=== PATIENT | female | born 2000 | race Caucasian/White ===

== ENCOUNTER → 2019-03-29 | Outpatient (CLI) | payer OTHER ==
--- NOTE | 2019-03-30 05:16 | MR ---
EXAMINATION TYPE: MR wrist LT wo con DATE OF EXAM: 03/29/2019 COMPARISON: None HISTORY: Lt wrist pain/injury, fell off step Standard multiplanar, multisequence MRI departmental protocol Multiplanar, multisequence images of the left wrist were acquired. FINDINGS: There is abnormal decreased signal on the T1 images in the proximal scaphoid bone related t o edema in the proximal scaphoid. There is a fracture through the waist of the scaphoid bone with no displacement. The other carpal bones appear intact. Proximal metacarpals are intact. Distal radius an d ulna appear intact. The triangular cartilage appears intact. There is increased joint fluid of the carpus seen mostly on the posterior aspect of the wrist. The intercarpal joint spaces are fairly norm al. The flexor and extensor tendons of the wrist appear intact. IMPRESSION: There is fracture of the waist of the scaphoid bone with edema in the proximal scaphoid consistent wi th avascular necrosis. Wrist joint effusion.
== END | disposition home or self-care (01) ==
LOC: RADMRIMAIN 21:04
PROVIDERS: ATTEND Orthopaedic Surgery Hand Surgery
DX: S62.025D Nondisplaced fracture of middle third of navicular [scaphoid] bone of left wrist, subsequent encounter for fracture with routine healing (principal)

== ENCOUNTER 2019-04-09 11:43 | Day surgery (SDC) | payer OTHER ==
[2019-04-07 11:38] VITALS: BMI 32.3
[~2019-04-09 11:43] MED LIST: DEXAMETHASONE SOD PHOSPHATE 10 MG/ML 1 ML VIAL IV ONE; HYDROmorphone 0.5 MG/0.5 ML SYRINGE IVP PRN; LACTATED RINGERS 1,000 ML IV SCH; LIDOCAINE 1% 20 ML VIAL (10MG/ML) FOR IV START INTRADERMA PRN; MIDAZOLAM 2 MG/2 ML VIAL IV PRN; ONDANSETRON 4 MG/2 ML VIAL IVP ONE; SCOPOLAMINE 1.5MG/72HR PATCH TRANSDERM ONE
[2019-04-09] MEDS ORDERED: LIDOCAINE 1% 20 ML VIAL (10MG/ML) FOR IV START SQ ONE (12:29)
[2019-04-09] MEDS ORDERED: fentaNYL (PF) 50 MCG/ML 2 ML AMP IV ONE (13:27)
[2019-04-09] MEDS ORDERED: MIDAZOLAM 2 MG/2 ML VIAL IV ONE (13:27)
--- NOTE | 2019-04-09 13:40 | P.ANPRN ---
Procedure Note - Anesthesia - Nerve Block Performed Left Axillary Single Time Out Performed: Yes (1326) Date of Procedure: 04/09/19 Procedure Start Time: 13:26 Procedure Stop Time: 13:32 Location of Patient Procedure: PreOp Indication: Acute Post-Operative Pain, Dx/Pain Location, Requested by Surgeon Sedation Type: Sedate with meaningful contact maintained Preparation: Sterile Prep Position: Supine Needle Types: Pajunk Needle Gauge: 21 Ultrasound used to visualize needle placement: Yes Ultrasound used to observe medication spread: Yes Injectate: 0.5% Ropivacaine (see comment for volume) (20ml) Blood Aspirated: No Pain Paresthesia on Injection Noted: No Resistance on Injection: Normal Image Stored and Saved: Yes Events: Uneventful and Well Tolerated
[2019-04-09] MEDS ORDERED: fentaNYL (PF) 50 MCG/ML 2 ML AMP ONE (13:45)
[2019-04-09] MEDS ORDERED: LIDOCAINE 1% INJ 10MG/ML (20 ML MDV) ONE (13:45)
[2019-04-09] MEDS ORDERED: PHENYLEPHRINE-0.9% NACL SYG 1 MG/10 ML SYRINGE ONE (13:45)
[2019-04-09] MEDS ORDERED: ePHEDrine SULFATE/0.9% NACL/PF 50 MG/5 ML SYRINGE IV ONE (13:45)
[2019-04-09] MEDS ORDERED: MIDAZOLAM 2 MG/2 ML VIAL ONE (13:45)
[2019-04-09] MEDS ORDERED: ROPIVACAINE 5 MG/ML 30 ML VIAL ONE (13:45)
[2019-04-09] MEDS ORDERED: PROPOFOL 10 MG/ML 20 ML VIAL IV ONE (13:45)
[2019-04-09] MEDS ORDERED: LIDOCAINE 1%-EPI 1:100,000 20 ML VIAL SQ ONE (14:19)
[2019-04-09] MEDS ORDERED: BUPIVACAINE (PF) 0.5% 30 ML VIAL SQ ONE (14:19)
[2019-04-09] MEDS ORDERED: LACTATED RINGERS 1,000 ML IV ONE (14:34)
[2019-04-09 16:33] VITALS: TEMP 98.2
[2019-04-09 16:37] VITALS: RESP 16
[2019-04-09 17:32] VITALS: BP 137/77; PULSE 120
--- NOTE | 2019-04-10 15:15 | FL ---
EXAMINATION TYPE: FL guidance operating room, XR wrist complete LT DATE OF EXAM: 04/09/2019 CLINICAL HISTORY: Fluoroscopic documentation of fixation of a displaced fracture of the left navicula r bone/scaphoid. TECHNIQUE: Fluoroscopy. COMPARISON: None. FINDINGS: Fluoroscopic guidance was provided during pain relief procedure performed by Dr. Sandra ortega A total of 1.48 minutes of fluoroscopic time was utilized during the procedure and 7 spot images are acquired. Images acquired shows surgical fixation of a scaphoid fracture. IMPRESSION: As Above.
--- NOTE | 2019-04-10 16:14 | P.OP ---
Date of Procedure: 04/09/19 Preoperative Diagnosis: Nonunion of left scaphoid waist fracture Postoperative Diagnosis: Nonunion of left scaphoid waist fracture Procedure(s) Performed: Open reduction and internal fixation of left scaphoid nonunion Implants: Synthes 2.4 mm headless compression screw - 16 mm Anesthesia: MOEAkelsey, local Surgeon: Maxwell Otero Slitter And Cutter Operator #1: Tena Moreno Estimated Blood Loss (ml): 4 Condition: stable Disposition: PACU Indications for Procedure: The patient is a pleasant 18-year-old female, who sustained a fracture of her left scaphoid. She did not seek treatment after the initial injury and had not been immobilized. X-rays were eventually obtained, which demonstrated the fracture. Treatment options/alternatives were discussed in the office. Operative treatment was recommended. Risks and benefits of both non-operative and surgical treatment were reviewed in the office; the patient expressed understanding and elected to proceed with surgery. The operative site was confirmed and marked. Consent forms were signed. Description of Procedure: The patient was administered regional nerve block by the Anesthesia team and was then brought to the operative suite. She was positioned supine with the ope rative limb on a hand table. Prophylactic antibiotics were administered. A tourniquet was applied and the left upper extremity was prepped and draped in standard, sterile fashion. A time-out was performed, confirming patient identifiers, the operative side, site and procedure to be performed: all team members expressed agreement. The limb was exsanguinated with an Esmarch and the tourniquet was inflated. A longitudinal dorsal incision was marked over the proximal pole of the scaphoid, just distal to Listers tubercle. The skin was sharply incised and full-thickness skin flaps were elevated. The EPL tendon was identified. The distal edge of the extensor retinaculum was incised to facilitate exposure. Small, partial-thickness cut was inadvertently made in the EPL tendon while releasing the retinaculum. This involved less than 25% of the tendon circumference. This was repaired with a 6-0 nylon suture. The dorsal wrist capsule was identified and capsulotomy was made, taking care to protect the intercarpal ligaments. The proximal pole of the scaphoid was visualized. Intraoperative fluoroscopy was used to evaluate the fracture from multiple views. The wrist was hyperflexed and the starting point was visually identified and confirmed with imaging. A guidewire was advanced into the scaphoid and across the fracture. Initial wire position was suboptimal. This was left in place and a 2nd wire was selected and advanced in a new trajectory, confirmed on imaging. Both wires were then advanced through the skin of the thenar eminence via a small stab incision and withdrawn below the scaphoid articular surface to permit wrist extension. The position of the wires was assessed on multiple fluoroscopy views and found to be satisfactory. The wrist was again flexed and the selected wire was driven back across the scaphoid and out the dorsal incision. The length was measured off the guidewire, which was then advanced out the volar skin to permit easier removal in the event of inadvertent wire breakage. The cannulated drill was inserted over the guidewire, checking insertion depth with fluoroscopy. The screw was then inserted over the wire. A 20 mm screw was initially selected but this proved to be too long, sitting proud above the proximal articular surface. This was removed easily and a 16 mm screw was selected and inserted over the guidewire. Placement below the chondral surface was visually confirmed. The guidewires were removed. Final images were obtained, confirming implant position and fracture alignment. The wrist was taken through full range of motion: There was no crepitus, grinding or instability. The wound was thoroughly irrigated with normal saline. The capsule and extensor retinaculum were repaired with interrupted 3-0 Vicryl sutures. The tourniquet was released after 90 minutes at 250 mmHg. Good hemostasis was obtained with held pressure. The subcutaneous tissues were reapproximated with interrupted Vicryl sutures and the incision closed with a running 4-0 Monocryl suture. Local anesthetic was injected for adjunctive postoperative analgesia. Steri-Strips and sterile dressings were applied, followed by short arm thumb spica splint. All sponge, needle and instrument counts were correct at the end of the case. The patient tolerated the procedure well and was taken to the recovery room in stable condition.
== END 2019-04-09 17:48 | disposition home or self-care (01) ==
LOC: OR 11:43
PROVIDERS: ATTEND Orthopaedic Surgery
DX: S62.022K Displaced fracture of middle third of navicular [scaphoid] bone of left wrist, subsequent encounter for fracture with nonunion (principal); Z79.3 Long term (current) use of hormonal contraceptives; Z90.89 Acquired absence of other organs; V00.831D Fall from motorized mobility scooter, subsequent encounter
CPT/HCPCS: 25440; 81025; 64417; 76942; 73110; C1713; J2250; J1100; J0690; J2405; J2001; J3010; J2795; J2370; J2704; 64415

== ENCOUNTER → 2019-04-21 | Outpatient (CLI) | payer OTHER | END | disposition home or self-care (01) | LOC: LABWHC1 16:03 | PROVIDERS: ATTEND Orthopaedic Surgery | DX: E55.9 Vitamin D deficiency, unspecified (principal); M25.532 Pain in left wrist; S62.022D Displaced fracture of middle third of navicular [scaphoid] bone of left wrist, subsequent encounter for fracture with routine healing | CPT/HCPCS: 36415; 82306 ==

== ENCOUNTER → 2019-07-09 | Outpatient (CLI) | payer OTHER ==
--- NOTE | 2019-07-09 12:22 | CT ---
EXAMINATION TYPE: CT wrist LT wo con DATE OF EXAM: 07/09/2019 COMPARISON: 04/08/2019 MRI wrist HISTORY: Left wrist pain CT DLP: 98.7 mGycm Automated exposure control for dose reduction was used. TECHNIQUE: Axial images 2 mm thick sections. Reconstructed images in the coronal and sagittal plane. FINDINGS: There is a screw present within the scaphoid. There appears to be nonunion of the scaphoid fracture. No resorption around the fracture fragment is evident. Lucency remains through the fracture line harman angel. Scapholunate space appears preserved. Remaining carpal bones appear normal. Distal radius and ulna ap pear normal. A BB is over the ulnar aspect of the wrist. IMPRESSION: 1. NO ACUTE OSSEOUS ABNORMALITY. 2. NONUNION OF A SCAPHOID FRACTURE.
== END | disposition home or self-care (01) ==
LOC: RADCTMAIN 09:27
PROVIDERS: ATTEND Orthopaedic Surgery
DX: S62.022K Displaced fracture of middle third of navicular [scaphoid] bone of left wrist, subsequent encounter for fracture with nonunion (principal); Z98.890 Other specified postprocedural states

== ENCOUNTER 2020-05-31 12:10 | Emergency (ER) | payer OTHER ==
[2020-05-31] MEDS ORDERED: MORPHINE SULFATE 2 MG/ML SYRINGE IVP PRN (12:59)
[2020-05-31] MEDS ORDERED: ONDANSETRON 4 MG/2 ML VIAL IVP STA (12:59)
[2020-05-31] MEDS ORDERED: SODIUM CHLORIDE 0.9% 500 ML 500 ML IV ONE (12:59)
[2020-05-31 13:50] LABS: Basophils % (A) 0 %; Eosinophils # (A) 0.1 k/uL (0-0.7); Eosinophils % (A) 1 %; HCT 43.2 % (34.0-46.0); HGB 14.7 gm/dL (11.4-16.0); Lymphocytes # (A) 1.5 k/uL (1.0-4.8); Lymphocytes % (A) 11 %; MCH 30.1 pg (25.0-35.0); MCV 88.5 fL (80.0-100.0); Mean Platelet Volume 8.4; Monocytes # (A) 0.5 k/uL (0-1.0); Monocytes % (A) 3 %; Neutrophils # (A) 11.9 k/uL (1.3-7.7); Neutrophils % (A) 84 %; Platelet Count 283 k/uL (150-450); RBC 4.88 m/uL (3.80-5.40); RDW 12.6 % (11.5-15.5)
[2020-05-31] MEDS ORDERED: ACETAMINOPHEN TAB 325 MG TAB PO STA (13:50)
[2020-05-31 14:00] LABS: Albumin 4.5 g/dL (3.5-5.0); Potassium 3.9 mmol/L (3.5-5.1); Total Bilirubin 0.6 mg/dL (0.2-1.3); Total Protein 7.2 g/dL (6.3-8.2)
--- NOTE | 2020-05-31 14:07 | US ---
EXAMINATION TYPE: US pelvis DATE OF EXAM: 05/31/2020 COMPARISON: NONE . CLINICAL HISTORY: LLQ Pain. LLQ pain today with nausea and vomiting today TECHNIQUE: Transabdominal (TA). Transabdominal sonographic images of the pelvis were acquired and b ladder is not fully prepped. Date of LMP: 05/31/20 EXAM MEASUREMENTS: Uterus: 8.3 x 4.5 x 3.0 cm Endometrial Stripe: 0.3 cm Right Ovary: 2.1 x 1.3 x 1.1 cm Left Ovary: 2.1 x 2.1 x 1.6 cm 1. Uterus: Anteverted 2. Endometrium: thickness is wnl for day 1 LMP 3. Right Ovary: small follicles 4. Left Ovary: small follicles Spectral, color and waveform Doppler imaging shows good arterial and venous flow within the ovaries . 5. Bilateral Adnexa: wnl 6. Posterior cul-de-sac: wnl 7. Bowel is noted at LLQ pain. Heterogeneous anteverted uterus. Endometrial stripe not suspiciously thickened. No free fluid. Both ovaries seen and normal in size. No suspicious adnexal masses. IMPRESSION: Unremarkable study.
[2020-05-31 15:42] LABS: Appearance,Urine Cloudy (Clear); Bacteria,Urine Rare /hpf; Bilirubin,Urine Negative (Negative); Blood,Urine Large (Negative); Calcium Oxalate Crystals,Urine Occasional /hpf; Color,Urine Yellow; Glucose,Urine (UA) Negative (Negative); Ketones,Urine Negative (Negative); Leukocyte Esterase,Urine Moderate (Negative); Mucus,Urine Many /hpf; Nitrite,Urine Negative (Negative); PH, Urine 5.5 (5.0-8.0); Protein,Urine 2+ (Negative); RBC,Urine >182 /hpf (0-5); Specific Gravity,Urine 1.029 (1.001-1.035); Squamous Epithelial Cell,Urine 4 /hpf (0-4); Urobilinogen,Urine <2.0 mg/dL (<2.0); WBC,Urine 89 /hpf (0-5)
[2020-05-31] MEDS ORDERED: KETOROLAC 15 MG/ML 1 ML VIAL IVP STA (15:54)
[2020-05-31 16:32] VITALS: BP 127/74; PULSE 81; RESP 18; TEMP 98.3
[2020-05-31] MEDS ORDERED: cefTRIAXone IN SWFI 1,000 MG/10 ML SYRINGE IVP STA (16:47)
--- NOTE | 2020-05-31 16:50 | CT ---
EXAMINATION TYPE: CT abdomen pelvis w con DATE OF EXAM: 05/31/2020 COMPARISON: None HISTORY: LLQ pain CT DLP: 1021.8 mGycm Automated exposure control for dose reduction was used. CONTRAST: Performed with IV Contrast, patient injected with 100 mL of Isovue 370. Images obtained from the diaphragm to the floor the pelvis with IV contrast. The lung bases are clear. There is no pleural effusion. Heart size is normal. There is no pericardial effusion. Liver spleen stomach pancreas gallbladder appear normal. Bile ducts are not dilated. There is no adrenal mass. There is left-sided hydronephrosis. There is 7 mm obstructing calculus at t he left ureteropelvic junction. There is mild left side perinephric edema. Right kidney shows normal contrast opacification without evidence of obstruction. There is no retroperitoneal adenopathy. Bladder distends smoothly. There is 4.6 cm cyst on the right ovary. Uterus is anteverted. There is no free fluid in the pelvis. Lumbar vertebra have normal spacing and alignment. Posterior elements are intact. Bony pelvis is inta ct. Appendix is normal. There is no mesenteric edema. There is no ascites or free air. There is no bowel obstruction. IMPRESSION: Obstructing calculus at the left ureteropelvic Junction with left-sided hydronephrosis. Normal appendix. Large cyst on the right ovary.
--- NOTE | 2020-05-31 17:10 | ED ---
Abdominal Pain HPI - General Chief Complaint: Abdominal Pain Stated Complaint: ABD pain Time Seen by Provider: 05/31/20 12:41 Source: patient Mode of arrival: ambulatory Limitations: no limitations - History of Present Illness Initial Comments: 19-year-old female presents for left lower quadrant abdominal pain. Patient states she had left lower quadrant pain that began early this morning she states it woke her up out of a sleep. Patient states is sharp in nature she denies radiation anywhere. She denies upper abdominal pain chest pain shortness of breath she denies dysuria urgency frequency hematuria or history of kidney stones. Patient has a known history of ovarian cysts she states she does not think she is patient does complain of nausea vomiting. Patient no additional complaints she appears uncomfortable but nontoxic on arrival she is not in distress - Related Data Home Medications Medication Instructions Recorded Confirmed [id number] 1 tab PO HS 05/31/20 05/31/20 Previous Rx's Medication Instructions Recorded Cephalexin [Keflex] 500 mg PO Q6HR 7 Days #28 cap 05/31/20 Ondansetron Odt [Zofran Odt] 4 mg PO Q8HR PRN 7 Days #21 tab 05/31/20 Allergies Allergy/AdvReac Type Severity Reaction Status Date / Time green grapes AdvReac Cough Uncoded 05/31/20 14:06 Review of Systems ROS Statement: Those systems with pertinent positive or pertinent negative responses have been documented in the HPI. ROS Other: All systems not noted in ROS Statement are negative. Past Medical History Additional Past Medical History / Comment(s): fx left wrist-has gauze/angelina wrap/partial cast on left wrist History of Any Multi-Drug Resistant Organisms: None Reported Past Surgical History: Adenoidectomy, Tonsillectomy Past Anesthesia/Blood Transfusion Reactions: No Reported Reaction Past Psychological History: No Psychological Hx Reported Smoking Status: Never smoker Past Alcohol Use History: None Reported Past Drug Use History: None Reported - Past Family History Father Family Medical History: Cancer General Exam - General Exam Comments Initial Comments: General: The patient is awake and alert, in no distress Eye: +3 mm pupils are equal, round and reactive to light, extra-ocular m ovements are intact. No nystagmus. There is normal conjunctiva bilaterally. No signs of icterus. Ears, nose, mouth and throat: There are moist mucous membranes and no oral lesions. Neck: The neck is supple, there is no tenderness or JVD. Cardiovascular: There is a regular rate and rhythm. No murmur, rub or gallop is appreciated. Respiratory: Lungs are clear to auscultation, respirations are non-labored, breath sounds are equal. No wheezes, stridor, rales, or rhonchi. Gastrointestinal: [Soft, non-distended, mild-moderate tenderness LLQ, abdomen without masses or organomegaly noted. There is no rebound or guarding present. Musculoskeletal: Normal ROM, no tenderness. Strength 5/5. Sensation intact. Radial pulses equal bilaterally 2+. Neurological: A&O x 3. CN II-XII intact grossly, There are no obvious motor or sensory deficits. Coordination appears grossly intact. Speech is normal. Skin: Skin is warm and dry and no rashes or lesions are noted. Psychiatric: Cooperative, appropriate mood & affect, normal judgment. Limitations: no limitations Course Vital Signs 05/31/20 05/31/20 12:33 16:31 Temperature 98.9 F 98.3 F Pulse Rate 108 H 81 Respiratory 20 18 Rate Blood Pressure 134/85 127/74 O2 Sat by Pulse 99 98 Oximetry Medical Decision Making - Medical Decision Making US no torsion. blood on UA. no fevers. UVJ left sided obstructing stone. no fevers. urine culture pending. pt initiated on abx until urine culture results. pain controlled. pt case discussed with Rosa Argueta who is agreable to care plan and discharge. pt is agreeable to return for fever, uncontrolled pain. she is aware she is to call urology tomorrow to schedule f/u. - Lab Data Result diagrams: 05/31/20 13:18 05/31/20 13:18 Lab Results 05/31/20 05/31/20 05/31/20 Range/Units 13:18 13:18 14:45 WBC 14.0 H (4.0-11.0) k/uL RBC 4.88 (3.80-5.40) m/uL Hgb 14.7 (11.4-16.0) gm/dL Hct 43.2 (34.0-46.0) % MCV 88.5 (80.0-100.0) fL MCH 30.1 (25.0-35.0) pg MCHC 34.0 (31.0-37.0) g/dL RDW 12.6 (11.5-15.5) % Plt Count 283 (150-450) k/uL MPV 8.4 Neutrophils % 84 % Lymphocytes % 11 % Monocytes % 3 % Eosinophils % 1 % Basophils % 0 % Neutrophils # 11.9 H (1.3-7.7) k/uL Lymphocytes # 1.5 (1.0-4.8) k/uL Monocytes # 0.5 (0-1.0) k/uL Eosinophils # 0.1 (0-0.7) k/uL Basophils # 0.0 (0-0.2) k/uL Sodium 139 (137-145) mmol/L Potassium 3.9 (3.5-5.1) mmol/L Chloride 106 (98-107) mmol/L Carbon Dioxide 27 (22-30) mmol/L Anion Gap 6 mmol/L BUN 11 (7-17) mg/dL Creatinine 1.09 H (0.52-1.04) mg/dL Est GFR (CKD-EPI)AfAm 85 (>60 ml/min/1.73 sqM) Est GFR (CKD-EPI)NonAf 74 (>60 ml/min/1.73 sqM) Glucose 115 H (74-99) mg/dL Calcium 10.0 (8.4-10.2) mg/dL Total Bilirubin 0.6 (0.2-1.3) mg/dL AST 31 (14-36) U/L ALT 30 (4-34) U/L Alkaline Phosphatase 60 (38-126) U/L Total Protein 7.2 (6.3-8.2) g/dL Albumin 4.5 (3.5-5.0) g/dL Amylase 31 (30-110) U/L Lipase 117 (23-300) U/L Urine Color Yellow Urine Appearance Cloudy H (Clear) Urine pH 5.5 (5.0-8.0) Ur Specific Leggett 1.029 (1.001-1.035) Urine Protein 2+ H (Negative) Urine Glucose (UA) Negative (Negative) Urine Ketones Negative (Negative) Urine Blood Large H (Negative) Urine Nitrite Negative (Negative) Urine Bilirubin Negative (Negative) Urine Urobilinogen <2.0 (<2.0) mg/dL Ur Leukocyte Esterase Moderate H (Negative) Urine RBC >182 H (0-5) /hpf Urine WBC 89 H (0-5) /hpf Ur Squamous Epith Cells 4 (0-4) /hpf Calcium Oxalate Crystal Occasional H (None) /hpf Urine Bacteria Rare H (None) /hpf Urine Mucus Many H (None) /hpf Urine HCG, Qual (Not Detectd) 05/31/20 Range/Units 14:45 WBC (4.0-11.0) k/uL RBC (3.80-5.40) m/uL Hgb (11.4-16.0) gm/dL Hct (34.0-46.0) % MCV (80.0-100.0) fL MCH (25.0-35.0) pg MCHC (31.0-37.0) g/dL RDW (11.5-15.5) % Plt Count (150-450) k/uL MPV Neutrophils % % Lymphocytes % % Monocytes % % Eosinophils % % Basophils % % Neutrophils # (1.3-7.7) k/uL Lymphocytes # (1.0-4.8) k/uL Monocytes # (0-1.0) k/uL Eosinophils # (0-0.7) k/uL Basophils # (0-0.2) k/uL Sodium (137-145) mmol/L Potassium (3.5-5.1) mmol/L Chloride (98-107) mmol/L Carbon Dioxide (22-30) mmol/L Anion Gap mmol/L BUN (7-17) mg/dL Creatinine (0.52-1.04) mg/dL Est GFR (CKD-EPI)AfAm (>60 ml/min/1.73 sqM) Est GFR (CKD-EPI)NonAf (>60 ml/min/1.73 sqM) Glucose (74-99) mg/dL Calcium (8.4-10.2) mg/dL Total Bilirubin (0.2-1.3) mg/dL AST (14-36) U/L ALT (4-34) U/L Alkaline Phosphatase (38-126) U/L Total Protein (6.3-8.2) g/dL Albumin (3.5-5.0) g/dL Amylase (30-110) U/L Lipase (23-300) U/L Urine Color Urine Appearance (Clear) Urine pH (5.0-8.0) Ur Specific Leggett (1.001-1.035) Urine Protein (Negative) Urine Glucose (UA) (Negative) Urine Ketones (Negative) Urine Blood (Negative) Urine Nitrite (Negative) Urine Bilirubin (Negative) Urine Urobilinogen (<2.0) mg/dL Ur Leukocyte Esterase (Negative) Urine RBC (0-5) /hpf Urine WBC (0-5) /hpf Ur Squamous Epith Cells (0-4) /hpf Calcium Oxalate Crystal (None) /hpf Urine Bacteria (None) /hpf Urine Mucus (None) /hpf Urine HCG, Qual Not Detected (Not Detectd) Disposition Clinical Impression: Kidney stone, Urolithiasis Disposition: HOME SELF-CARE Condition: Good Instructions (If sedation given, give patient instructions): Kidney Stones (ED) Additional Instructions: Please use medication as discussed. Please follow-up with family doctor in the next 2 days, urology in next 2-3 days. Please return to emergency room if the symptoms increase or worsen or for any other concerns. IMMEDIATE RETURN FOR F ZACARIAS TO ER Prescriptions: Cephalexin [Keflex] 500 mg PO Q6HR 7 Days #28 cap Ondansetron Odt [Zofran Odt] 4 mg PO Q8HR PRN 7 Days #21 tab PRN Reason: Nausea Is patient prescribed a controlled substance at d/c from ED?: No Referrals: Jaiver Carroll DO [Primary Care Provider] - 1-2 days Polo Huitron MD [STAFF PHYSICIAN] - 1-2 days Time of Disposition: 17:10
== END 2020-05-31 17:44 | disposition home or self-care (01) ==
LOC: EC 12:10
DX: N20.0 Calculus of kidney (principal); Z91.018 Allergy to other foods
CPT/HCPCS: 36415; 80053; 82150; 83690; 85025; 81001; 81025; 87086; 93975; 76856; 74177; 99284; 96374; 96375 ×2; 96361 ×3; J2405; J0696; J1885; Q9967